=== PATIENT | male | born 1955 | race Caucasian/White ===

== ENCOUNTER → 2019-01-20 | Outpatient (CLI) | payer MEDICARE ==
[~2019-01-20] MED LIST: ALLOPURINOL300 MG PO; AMLODIPINE5 MG PO; CEFTIN250 MG PO; LISINOPRIL HCTZ1 TA1 PO; PERCOCET 325 MG1 TA5 PO; RANITIDINE150 MG PO; VICO75300 PO; ZOLOFT100 MG PO
[2019-01-20 10:21] LABS: BILIRUBIN NEGATIVE (NEGATIVE); BLOOD TRACE-INTACT (NEGATIVE); CLARITY CLEAR (CLEAR); COLOR YELLOW (YELLOW); GLUCOSE NEGATIVE (NEGATIVE); KETONE NEGATIVE (NEGATIVE); LEUKO ESTERASE TRACE (NEGATIVE); NITRITE NEGATIVE (NEGATIVE); PH 7.5 (5.0-9.0); UROBILINOGEN 0.2 E.U./dl (0.2-1.0)
[2019-01-20 10:52] LABS: CREATININE 1.53 mg/dL (0.70-1.30); POTASSIUM 3.9 mmol/L (3.5-5.1)
== END | disposition home or self-care (01) ==
LOC: LAB 09:32
PROVIDERS: Family Medicine
DX: E78.2 Mixed hyperlipidemia (principal); I10 Essential (primary) hypertension

== ENCOUNTER → 2020-07-25 | Outpatient (CLI) | payer MEDICARE ==
[2020-07-25 10:15] LABS: BUN 15 mg/dl (7-24); CHLORIDE 103 mmol/L (98-107); CHOLESTEROL 228 mg/dL (<200); CREATININE 1.39 mg/dL (0.70-1.30); POTASSIUM 3.8 mmol/L (3.5-5.1); SODIUM 136 mmol/L (136-145); TRIGLYCERIDES 166 mg/dl (<150)
[2020-07-25 10:17] LABS: LDL CHOLESTEROL 158 mg/dL (9-159)
== END | disposition home or self-care (01) ==
LOC: LAB 09:15
PROVIDERS: ATTEND Family Medicine
DX: I10 Essential (primary) hypertension (principal); E78.2 Mixed hyperlipidemia; Z13.1 Encounter for screening for diabetes mellitus

== ENCOUNTER → 2021-07-11 | Outpatient (CLI) | payer MEDICARE ==
[2021-07-11 11:51] LABS: BILIRUBIN Negative (Negative); BLOOD Negative (Negative); CLARITY Clear (Clear); COLOR Yellow (Yellow); GLUCOSE Negative (Negative); KETONE Trace (Negative); LEUKO ESTERASE 1+ (Negative); NITRITE Negative (Negative); SPECIFIC GRAVITY 1.015 (1.001-1.030); UROBILINOGEN 0.2 E.U./dl (0.0-1.0)
[2021-07-11 12:06] LABS: CREATININE 1.53 mg/dL (0.70-1.30); POTASSIUM 3.7 mmol/L (3.5-5.1)
[2021-07-11 12:09] LABS: BACTERIA 1+
== END | disposition home or self-care (01) ==
LOC: LAB 11:21
PROVIDERS: ATTEND Family Medicine
DX: I10 Essential (primary) hypertension (principal); R73.9 Hyperglycemia, unspecified; N30.00 Acute cystitis without hematuria; E78.2 Mixed hyperlipidemia

== ENCOUNTER → 2021-08-23 | Day surgery (SDC) | payer MEDICARE ==
[~2021-08-23] VITALS: Ht 187.9 cm; Wt 117.9 kg
[~2021-08-23] MED LIST changes: +LIPITOR40 MG PO; +PERCOCET 5-3251 EACH PO
[2021-08-23 07:35] VITALS: BP 143/68
[2021-08-23 09:09] VITALS: BP 117/69
[2021-08-23 09:24] VITALS: BP 121/56
[2021-08-23 09:39] VITALS: BP 128/75
== END | disposition home or self-care (01) ==
LOC: SDC 08-15 09:30
PROVIDERS: ATTEND Surgery
DX: D48.4 Neoplasm of uncertain behavior of peritoneum (principal); I10 Essential (primary) hypertension; L92.8 Other granulomatous disorders of the skin and subcutaneous tissue; J45.909 Unspecified asthma, uncomplicated; K21.9 Gastro-esophageal reflux disease without esophagitis; F32.9 Major depressive disorder, single episode, unspecified; F41.9 Anxiety disorder, unspecified; Z98.890 Other specified postprocedural states

== ENCOUNTER → 2022-07-21 | Outpatient (CLI) | payer MEDICARE ==
[2022-07-21 08:44] LABS: BILIRUBIN Negative (Negative); BLOOD Trace-Intact (Negative); CLARITY Clear (Clear); COLOR Yellow (Yellow); GLUCOSE Negative (Negative); KETONE Trace (Negative); LEUKO ESTERASE Trace (Negative); NITRITE Negative (Negative)
[2022-07-21 09:00] LABS: BUN 17 mg/dl (9-23); CHLORIDE 101 mmol/L (98-107); CHOLESTEROL 152 mg/dL (<200); LDL CHOLESTEROL 93 mg/dL (9-159); POTASSIUM 3.8 mmol/L (3.4-5.1); TRIGLYCERIDES 127 mg/dl (<150); URIC ACID 10.1 mg/dL (3.7-9.2)
[2022-07-21 09:47] LABS: BACTERIA 1+; RBC 16-20 rbc/hpf (0-2)
== END ==
LOC: LAB 07:58
PROVIDERS: ATTEND Family Medicine
DX: I10 Essential (primary) hypertension (principal); E78.2 Mixed hyperlipidemia; Z79.899 Other long term (current) drug therapy

== ENCOUNTER → 2022-07-31 | Outpatient (CLI) | payer MEDICARE | END | disposition home or self-care (01) | LOC: US 00:48 | PROVIDERS: ATTEND Family Medicine | DX: Z13.6 Encounter for screening for cardiovascular disorders (principal) ==

== ENCOUNTER → 2023-06-24 | Outpatient (CLI) | payer MEDICARE ==
[2023-06-24 12:42] LABS: BUN 10 mg/dl (9-23); CHLORIDE 103 mmol/L (98-107); CHOLESTEROL 162 mg/dL (<200); LDL CHOLESTEROL 96 mg/dL (9-159); TRIGLYCERIDES 128 mg/dl (<150); URIC ACID 8.2 mg/dL (3.7-9.2)
== END | disposition home or self-care (01) ==
LOC: LAB 11:50
PROVIDERS: ATTEND Family Medicine
DX: I10 Essential (primary) hypertension (principal); E78.2 Mixed hyperlipidemia

== ENCOUNTER → 2024-11-07 | Day surgery (SDC) | payer MEDICARE ==
[2024-11-07] VITALS (12 sets, daily range): BP systolic 148–188; BP diastolic 71–105
[~2024-11-07] VITALS: Ht 187.9 cm; Wt 120.2 kg
[~2024-11-07] MED LIST changes: +HYDROCODONE-AC1 EAC1 PO; +Lidocaine Hydrochloride 30 ML VIAL ONE
== END | disposition home or self-care (01) ==
LOC: SDC 11-04 11:00
PROVIDERS: ATTEND Surgery
DX: C44.629 Squamous cell carcinoma of skin of left upper limb, including shoulder (principal); C44.612 Basal cell carcinoma of skin of right upper limb, including shoulder; L90.5 Scar conditions and fibrosis of skin; I10 Essential (primary) hypertension; E78.00 Pure hypercholesterolemia, unspecified; K21.9 Gastro-esophageal reflux disease without esophagitis; F41.9 Anxiety disorder, unspecified; F32.A Depression, unspecified; Z82.49 Family history of ischemic heart disease and other diseases of the circulatory system; Z98.890 Other specified postprocedural states; Z79.899 Other long term (current) drug therapy